=== PATIENT | male | born 1970 | race Two or more races ===

== ENCOUNTER 2018-06-17 18:54 | Observation (INO) | payer SELFPAY ==
[2018-06-17 19:22] LABS: ADD MAN DIFF? NO
[2018-06-17 19:27] LABS: BASO # 0.1 x10^3/uL (0.0-0.2); BASO % 1 % (0-3); EOS # 0.2 x10^3/uL (0.0-0.7); EOS % 3 % (0-3); HEMATOCRIT 43.3 % (39.0-53.0); LYMPH # 2.1 x10^3/uL (1.0-4.8); LYMPH % 28 % (24-48); MEAN CORPUSCULAR HEMOGLOBIN 30 pg (25-35); MEAN CORPUSCULAR HGB CONC 35 g/dL (31-37); MEAN CORPUSCULAR VOLUME 86 fL (79-100); MONO # 0.6 x10^3/uL (0.0-1.1); MONO % 8 % (0-9); NEUT # 4.6 x10^3uL (1.8-7.7); NEUT % 60 % (31-73); PLATELET COUNT 249 x10^3/uL (140-400); RED BLOOD COUNT 5.03 x10^6/uL (4.30-5.70); RED CELL DISTRIBUTION WIDTH 14.4 % (11.5-14.5); WHITE BLOOD COUNT 7.7 x10^3/uL (4.0-11.0)
[2018-06-17 19:52] LABS: ANION GAP 12 (6-14); BLOOD UREA NITROGEN 21 mg/dL (8-26); CALCIUM 8.4 mg/dL (8.5-10.1); CARBON DIOXIDE 25 mmol/L (21-32); CHLORIDE 98 mmol/L (98-107); GFR 79.8; GLUCOSE 142 mg/dL (70-99); SODIUM 135 mmol/L (136-145)
[2018-06-17 20:01] LABS: TROPONINI < 0.017 ng/mL (0.000-0.055)
[2018-06-17] MEDS ORDERED: ONDANSETRON PF 4 MG/2 ML VIAL. IV (21:15)
[2018-06-17] MEDS ORDERED: ACETAMINOPHEN 325 MG TABLET. PO (21:15)
[2018-06-17] MEDS ORDERED: MORPHINE SULFATE 4 MG/ML DISP.SYRIN. IV (21:15)
[2018-06-17] MEDS ORDERED: NITROGLYCERIN SUBLINGUAL 0.4 MG BOTTLE OF 25. SL (21:15)
[2018-06-18 01:58] LABS: TROPONINI < 0.017 ng/mL (0.000-0.055)
[2018-06-18 05:34] LABS: TROPONINI < 0.017 ng/mL (0.000-0.055)
[2018-06-18 05:58] LABS: ANION GAP 11 (6-14); BLOOD UREA NITROGEN 18 mg/dL (8-26); CALCIUM 8.6 mg/dL (8.5-10.1); CARBON DIOXIDE 27 mmol/L (21-32); CHLORIDE 98 mmol/L (98-107); GFR 79.8; GLUCOSE 141 mg/dL (70-99); POTASSIUM 3.8 mmol/L (3.5-5.1); SODIUM 136 mmol/L (136-145)
[2018-06-18] MEDS: INSULIN LISPRO 300 UNITS/3 ML INSULN.PEN. SQ (13:00)
[2018-06-18] MEDS ORDERED: DEXTROSE 50% 25 GM / 50ML DISP.SYRIN. IV (13:00)
[2018-06-18 13:36] LABS: LIPASE 325 U/L (73-393)
[2018-06-18 13:36] LABS: CHOLESTEROL 181 mg/dL (0-200); HDLC 26 mg/dL (40-60); LDLC 77 mg/dL (0-100); NON-HDL CHOLESTEROL 155 mg/dL (0-129); TRIGLYCERIDES 390 mg/dL (0-150); VLDLC 78 mg/dL (0-40)
[2018-06-18 14:05] LABS: THYROID STIM HORMONE (TSH) 7.326 uIU/mL (0.358-3.74)
[2018-06-18] MEDS: LISINOPRIL 20 MG TABLET PO (14:46)
[2018-06-18] MEDS: ASPIRIN ENTERIC COATED 81 MG TABLET.DR. PO (14:46)
[2018-06-18 16:45] LABS: POC GLUCOSE 100 mg/dL (70-99)
[2018-06-18] MEDS ORDERED: ATORVASTATIN CALCIUM 20 MG TABLET PO (21:00)
[2018-06-18 22:09] LABS: HEMOGLOBIN A1C 6.1 % (4.8-5.6)
== END 2018-06-18 17:05 | disposition home or self-care (01) ==
LOC: ER 18:54 → 2 SOUTH 21:00
DX: R07.89 Other chest pain (principal); I25.10 Atherosclerotic heart disease of native coronary artery without angina pectoris; E78.00 Pure hypercholesterolemia, unspecified; E78.5 Hyperlipidemia, unspecified; I10 Essential (primary) hypertension; Z82.49 Family history of ischemic heart disease and other diseases of the circulatory system; Z95.1 Presence of aortocoronary bypass graft; M19.90 Unspecified osteoarthritis, unspecified site; Z79.899 Other long term (current) drug therapy
CPT/HCPCS: 36415; 71045; 80048; 80061; 82962; 83036; 83690; 84443; 84484; 85025; 93005; 99285; G0378; G0379; J1815

== ENCOUNTER 2018-07-11 07:57 | Day surgery (SDC) | payer SELFPAY ==
[~2018-07-11 07:57] MED LIST changes: -CARV3.122 PO; +IV RINGERS,LACTATED 1000ML 1,000 ML IV SCH; +LIDOCAINE 1% PF 2 ML VIAL. ID PRN; +MORPHINE SULFATE 2 MG/ML DISP.SYRIN. IV PRN; +ONDANSETRON PF 4 MG/2 ML VIAL. IV PRN; +PROCHLORPERAZINE 10 MG/2 ML VIAL. IV PRN; +fentaNYL PF VIAL 100 MCG/2 ML VIAL IV PRN
[2018-07-11] MEDS ORDERED: BENZOCAINE ONE 20% MUCOSAL SPRAY. MM (08:00)
[2018-07-11] MEDS ORDERED: LIDOCAINE 2% VISCOUS 15 ML SOLUTION. SWSW ONE (08:00)
[2018-07-11] MEDS ORDERED: LIDOCAINE 2% TOPICAL JELLY 5GM TUBE. TP ONE ×2 (08:00→10:23)
[2018-07-11] MEDS ORDERED: CARV3.122 PO (08:50)
[2018-07-11] MEDS ORDERED: PROPOFOL 0 ML IV ONE (10:02)
[2018-07-11] MEDS ORDERED: BENZOCAINE ONE 20% MUCOSAL SPRAY. (10:23)
[2018-07-11] MEDS ORDERED: LIDOCAINE 2% VISCOUS 15 ML SOLUTION. ONE (10:24)
[2018-07-11] MEDS ORDERED: PROPOFOL 40 ML IV ONE (10:53)
[2018-07-11 12:55] VITALS: BP 160/97
--- NOTE | 2018-07-11 17:18 | CARD ---
MR#: [id number] Date of Study: 07/11/2018 Ordering Physician: CHARLI LENTZ Referring Physician: Trevor HORAN: Tanya Gunderson RDCS APPROVED REPORT EXAM: Transesophageal echocardiogram with color flow Doppler. INDICATION Aortic Valve Disease 2D DIMENSIONS LVOT Diameter2.2 (1.8-2.4cm) Aortic Valve AoV Peak Jagjit.244.4cm/sAoV VTI47.0cm AO Peak GR.23.9mmHgLVOT Peak Jagjit.103.6cm/s LVOT VTI 24.51cmAO Mean GR.13mmHg PHONG (VTI)1.50tq3LY P 1/2 [id number] Reason For Test : Evaluate aortic valve leaflets and regurgitation PROCEDURE After obtaining informed consent, patient underwent transesophageal echo in the PACU. Type of Sedation : General Anesthesia Sedation was administered by Dr. Jareth MD. Sedation was achieved with Propofol 400 mg intravenously. Transesophageal probe was inserted and advanced into esophagus by Charli Lentz MD. The TAQUERIA was performed without complications. Throughout the procedure, the blood pressure, pulse oximetry, cardiac rhythm, and rate were monitored . The patient tolerated the procedure without adverse effects. Recovery from general anesthesia was une ventful and vital signs were stable. LEFT VENTRICLE The left ventricular systolic function is normal. The Ejection Fraction is 55-60%. There is normal LV segmental wall motion. RIGHT VENTRICLE The right ventricle is normal size. There is normal right ventricular wall thickness. The right ventr icular systolic function is normal. ATRIA The left atrium is mildly dilated. The right atrium size is normal. The interatrial septum is intact with no evidence for an atrial septal defect or patent foramen ovale as noted on 2-D or Doppler imagi ng. AORTIC VALVE The aortic valve is tri-cuspid. Doppler and Color Flow revealed mild to moderate aortic regurgitation . There is no significant aortic valvular stenosis. MITRAL VALVE The mitral valve is normal in structure. There is no evidence of mitral valve prolapse. There is no m itral valve stenosis. Doppler and Color-flow revealed mild to moderate mitral regurgitation. TRICUSPID VALVE The tricuspid valve is normal in structure and function. Doppler and Color Flow revealed trace tricus pid regurgitation. There is no tricuspid valve stenosis. PULMONIC VALVE The pulmonary valve is normal in structure and function. Doppler and Color Flow revealed no pulmonic valvular regurgitation. There is no pulmonic valvular stenosis. GREAT VESSELS The aortic root is normal in size. PERICARDIAL EFFUSION There is no evidence of significant pericardial effusion. Critical Notification Critical Value: No <Conclusion> The left ventricular systolic function is normal. The Ejection Fraction is 55-60%. There is normal LV segmental wall motion. Mild to moderate aortic regurgitation. Mild to moderate mitral regurgitation. Trace tricuspid regurgitation. There is no evidence of significant pericardial effusion. Signed by : Charli Lentz, Electronically Approved : 07/11/2018 17:17:19
== END 2018-07-11 13:20 | disposition home or self-care (01) ==
LOC: SURG 07:57
PROVIDERS: ATTEND Internal Medicine Cardiovascular Disease
DX: I08.3 Combined rheumatic disorders of mitral, aortic and tricuspid valves (principal); I25.10 Atherosclerotic heart disease of native coronary artery without angina pectoris; I11.0 Hypertensive heart disease with heart failure; I50.30 Unspecified diastolic (congestive) heart failure; E78.00 Pure hypercholesterolemia, unspecified; E11.9 Type 2 diabetes mellitus without complications; Z79.82 Long term (current) use of aspirin; Z98.890 Other specified postprocedural states; Z89.022 Acquired absence of left finger(s); F17.200 Nicotine dependence, unspecified, uncomplicated; Z83.3 Family history of diabetes mellitus; Z82.49 Family history of ischemic heart disease and other diseases of the circulatory system; Z83.49 Family history of other endocrine, nutritional and metabolic diseases; Z79.84 Long term (current) use of oral hypoglycemic drugs; Z95.1 Presence of aortocoronary bypass graft; M19.90 Unspecified osteoarthritis, unspecified site; F10.20 Alcohol dependence, uncomplicated
CPT/HCPCS: 76376; 93312; 93320; 93325; J2704

== ENCOUNTER → 2018-07-11 | Outpatient (CLI) | payer SELFPAY ==
[2018-06-18 15:00] VITALS: BP 142/77
[~2018-07-11] MED LIST: ASPI-612 PO; ATOR20TA58 PO; CARV3.12 PO; CARV3.122 PO; HYDR12.53 PO; LISI-130 PO; NITR0.4T SL
[2018-07-11 08:40] LABS: BASO # 0.1 x10^3/uL (0.0-0.2); BASO % 1 % (0-3); EOS # 0.3 x10^3/uL (0.0-0.7); EOS % 4 % (0-3); HEMATOCRIT 38.9 % (39.0-53.0); HEMOGLOBIN 13.6 g/dL (13.0-17.5); LYMPH % 34 % (24-48); MEAN CORPUSCULAR HEMOGLOBIN 30 pg (25-35); MEAN CORPUSCULAR HGB CONC 35 g/dL (31-37); MEAN CORPUSCULAR VOLUME 86 fL (79-100); MONO # 0.4 x10^3/uL (0.0-1.1); MONO % 7 % (0-9); NEUT # 3.1 x10^3uL (1.8-7.7); NEUT % 53 % (31-73); PLATELET COUNT 195 x10^3/uL (140-400); RED BLOOD COUNT 4.55 x10^6/uL (4.30-5.70); RED CELL DISTRIBUTION WIDTH 14.3 % (11.5-14.5); WHITE BLOOD COUNT 5.8 x10^3/uL (4.0-11.0)
[2018-07-11 09:00] LABS: PROTHROMBIN TIME PATIENT 13.7 SEC (11.7-14.0)
[2018-07-11 09:28] LABS: ALBUMIN 3.9 g/dL (3.4-5.0); CALCIUM 8.8 mg/dL (8.5-10.1); CREATININE 0.9 mg/dL (0.7-1.3); GFR 90.1; POTASSIUM 3.5 mmol/L (3.5-5.1); TOTAL BILIRUBIN 0.5 mg/dL (0.2-1.0)
== END | disposition home or self-care (01) ==
LOC: SURGPAT 07:59
PROVIDERS: ATTEND Thoracic Surgery (Cardiothoracic Vascular Surgery)
DX: Z01.810 Encounter for preprocedural cardiovascular examination (principal); I25.10 Atherosclerotic heart disease of native coronary artery without angina pectoris; I10 Essential (primary) hypertension; E11.9 Type 2 diabetes mellitus without complications; E78.5 Hyperlipidemia, unspecified; E78.00 Pure hypercholesterolemia, unspecified; Z79.82 Long term (current) use of aspirin; F17.200 Nicotine dependence, unspecified, uncomplicated; Z95.1 Presence of aortocoronary bypass graft; Z89.022 Acquired absence of left finger(s); Z83.49 Family history of other endocrine, nutritional and metabolic diseases; Z83.3 Family history of diabetes mellitus; Z82.49 Family history of ischemic heart disease and other diseases of the circulatory system
CPT/HCPCS: 36415; 80053; 85025; 85610; 85730; 87641

== ENCOUNTER → 2018-07-12 | Outpatient (CLI) | payer SELFPAY ==
[2018-06-18 15:00] VITALS: BP 142/77
[~2018-07-12] MED LIST changes: +CARV3.122 PO; -IV RINGERS,LACTATED 1000ML 1,000 ML IV SCH; -LIDOCAINE 1% PF 2 ML VIAL. ID PRN; -MORPHINE SULFATE 2 MG/ML DISP.SYRIN. IV PRN; -ONDANSETRON PF 4 MG/2 ML VIAL. IV PRN; -PROCHLORPERAZINE 10 MG/2 ML VIAL. IV PRN; -fentaNYL PF VIAL 100 MCG/2 ML VIAL IV PRN
--- NOTE | 2018-07-12 16:13 | RAD ---
CT of the chest without contrast 07/12/2018 INDICATION: Preoperative. COMPARISON STUDY: Chest radiograph June 17, 2018. TECHNIQUE: Multidetector CT imaging of the chest was performed without the administration of IV contrast. FINDINGS: Heart is top normal in size. No pericardial effusion is identified. Scattered coronary calcification noted. No significant calcification involving the aortic valve is identified. The ascending thoracic aorta is minimally ectatic measuring 3.7 cm at the level of the main pulmonary artery. No pathologically enlarged mediastinal adenopathy is identified. No pneumothorax or pleural effusion is seen. No focal consolidative infiltrates are identified. No acute abnormalities of the upper abdomen are seen. No acute osseous changes are identified.Surgical clips noted in the epigastrium. IMPRESSION: No evidence of acute cardiopulmonary process is identified. Scattered coronary artery calcification noted. CT DOSING PQRS STATEMENT: One or more of the following individualized dose reduction techniques were utilized for this examination: 1. Automated exposure control 2. Adjustment of the mA and/or kV according to patient size 3. Use of iterative reconstruction technique Electronically signed by: Erik Gupta MD (07/12/2018 4:09 PM) [id number]
--- NOTE | 2018-07-13 08:43 | RAD ---
Bilateral Duplex Carotid Ultrasound: History: Preoperative. Technique: Grayscale, color Doppler, and spectral Doppler imaging was performed of the arteries of the neck. Findings: Peak systolic velocity in right common carotid artery is 86 cm/sec. Peak systolic velocity in the right internal carotid artery is 56 cm/sec. Maximum end-diastolic velocity in the right internal carotid artery is 26 cm/sec. Right ICA/CCA ratio is 0.65. Peak systolic velocity in the right external carotid artery is 130 cm/sec. Peak systolic velocity in left common carotid artery is 84 cm/sec. Peak systolic velocity in the left internal carotid artery is 77 cm/sec. Maximum end-diastolic velocity in the left internal carotid artery is 36 cm/sec. Left ICA/CCA ratio is 0.91. Peak systolic velocity in the left external carotid artery is 119 cm/sec. Both vertebral arteries demonstrate antegrade flow. Grayscale imaging demonstrates mild atherosclerotic plaquing involving both carotid systems. Impression: No hemodynamically significant internal carotid artery stenosis. Note: Stenosis calculations for carotid ultrasound studies are derived from validated velocity criteria which are known to correlate with the NASCET methodology. Electronically signed by: Mina Murray MD (07/13/2018 8:39 AM) [place] [id number]
--- NOTE | 2018-07-13 12:08 | RAD ---
MR#: [id number] Date of Study: 07/12/2018 Ordering Physician: BARAK PETERSEN, Referring Physician: BARAK PETERSEN, Tech: Alex Teixeira MBA, RDMS, RVT, RDCS, RTR APPROVED REPORT Patient Location: OUT-PATIENT Indications PRE-OP Vein Measurements Great Saphenous Small Saphenous RightLeft RightLeft Saph-Fem. Junction 3.00mm3.60mmProximal 1.30mm1.30mm Mid Thigh 3.00mm3.00mmMid 1.80mm1.40mm Distal Thigh 3.00mm3.30mmDistal 1.00mm1.30mm Proximal Calf 2.80mm2.60mm Mid Calf 0.90mm1.60mm Distal Calf 0.50mm2.30mm Findings Grayscale images of the bilateral greater saphenous veins do not reveal any obvious evidence of throm bus. The bilateral greater saphenous veins appear to be of adequate caliber measuring approximately 3 mm proximally and 3 mm at the level of the knee. The bilateral lesser saphenous veins appear to be s mall in caliber and not adequate for bypass grafting. Critical Notification Critical Value: No <Conclusion> Adequate bypass grafts in the bilateral greater saphenous veins. Bilateral lesser saphenous veins are too small in caliber to be adequate bypass grafts. Signed by : Amari Palomares, Electronically Approved : 07/13/2018 12:07:17
== END | disposition home or self-care (01) ==
LOC: SURGPAT 14:14
PROVIDERS: ATTEND Thoracic Surgery (Cardiothoracic Vascular Surgery)
DX: Z01.818 Encounter for other preprocedural examination (principal); I25.10 Atherosclerotic heart disease of native coronary artery without angina pectoris; I11.0 Hypertensive heart disease with heart failure; I50.30 Unspecified diastolic (congestive) heart failure; E11.9 Type 2 diabetes mellitus without complications; E78.00 Pure hypercholesterolemia, unspecified; Z87.891 Personal history of nicotine dependence; Z95.1 Presence of aortocoronary bypass graft
CPT/HCPCS: 71250; 93880; 93970

== ENCOUNTER → 2018-08-19 | Outpatient (CLI) | payer SELFPAY ==
[2018-07-25 10:33] VITALS: BP 129/81
[~2018-08-19] MED LIST changes: +ASPI325T11 PO; +FURO20TA3 PO; +IRON150C11 PO; +METF500T PO; +METO25TA4 PO; +OXYC1TAB7 PO; +SENN-22 PO
--- NOTE | 2018-08-19 13:06 | RAD ---
Chest, 2 views, 08/19/2018: HISTORY: Postop CABG Comparison is made to a study from 07/22/2018. There has been a previous median sternotomy. The heart size and pulmonary vascularity are normal. Left basilar atelectasis has cleared. No pulmonary infiltrate is seen. The previously seen tiny left pneumothorax has resolved. No significant pleural fluid is evident. IMPRESSION: No significant postoperative cardiopulmonary abnormality is detected. Electronically signed by: Hosea Giron MD (08/19/2018 1:02 PM) [facility]
== END | disposition home or self-care (01) ==
LOC: RAD 12:17
PROVIDERS: ATTEND Thoracic Surgery (Cardiothoracic Vascular Surgery)
DX: Z48.812 Encounter for surgical aftercare following surgery on the circulatory system (principal); K21.9 Gastro-esophageal reflux disease without esophagitis; I11.0 Hypertensive heart disease with heart failure; I50.30 Unspecified diastolic (congestive) heart failure; E78.00 Pure hypercholesterolemia, unspecified; E11.9 Type 2 diabetes mellitus without complications; E03.9 Hypothyroidism, unspecified; I25.10 Atherosclerotic heart disease of native coronary artery without angina pectoris; E78.5 Hyperlipidemia, unspecified; Z86.2 Personal history of diseases of the blood and blood-forming organs and certain disorders involving the immune mechanism; Z95.1 Presence of aortocoronary bypass graft; Z87.891 Personal history of nicotine dependence; Z82.41 Family history of sudden cardiac death; Z83.49 Family history of other endocrine, nutritional and metabolic diseases; Z82.49 Family history of ischemic heart disease and other diseases of the circulatory system; Z83.3 Family history of diabetes mellitus
CPT/HCPCS: 71046

== ENCOUNTER 2021-05-20 11:02 | Emergency (ER) | payer SELFPAY ==
[~2021-05-20] VITALS: Ht 177.8 cm; Wt 90.9 kg
[~2021-05-20 11:02] MED LIST changes: -ASPI-612 PO; +ASPI-886 PO; +CARV3.1210 PO; -CARV3.122 PO; -HYDR12.53 PO; +HYDR12.575 PO; -NITR0.4T SL; +NITR0.4T24 SL
[2021-05-20 11:35] LABS: BASO % 1 % (0-3); EOS % 1 % (0-3); HEMATOCRIT 35.7 % (39.0-53.0); HEMOGLOBIN 11.4 g/dL (13.0-17.5); LYMPH % 16 % (24-48); MEAN CORPUSCULAR HEMOGLOBIN 23 pg (25-35); MEAN CORPUSCULAR HGB CONC 32 g/dL (31-37); MEAN CORPUSCULAR VOLUME 72 fL (79-100); MONO # 0.3 x10^3/uL (0.0-1.1); MONO % 5 % (0-9); NEUT # 4.8 x10^3/uL (1.8-7.7); NEUT % 79 % (31-73); PLATELET COUNT 175 x10^3/uL (140-400); RED BLOOD COUNT 4.97 x10^6/uL (4.30-5.70); WHITE BLOOD COUNT 6.1 x10^3/uL (4.0-11.0)
[2021-05-20 11:47] LABS: CALCIUM 8.7 mg/dL (8.5-10.1); CREATININE 0.9 mg/dL (0.7-1.3); POTASSIUM 4.2 mmol/L (3.5-5.1)
[2021-05-20 11:53] LABS: ALBUMIN/GLOBULIN RATIO 0.9 (1.0-1.7); TOTAL BILIRUBIN 0.5 mg/dL (0.2-1.0); TOTAL PROTEIN 8.5 g/dL (6.4-8.2)
[2021-05-20] MEDS ORDERED: ACETAMINOPHEN 500 MG TABLET PO ONE (12:00)
[2021-05-20] MEDS ORDERED: IV NORMAL SALINE 1000ML BAG 1,000 ML IV ONE (12:00)
--- NOTE | 2021-05-20 12:17 | PHYS DOC ---
Past Medical History Past Medical History: High Cholesterol, Hypertension Past Surgical History: Coronary Bypass Surgery, Other Additional Past Surgical Histo: HERNIA X 3, L. 3RD FINGER AMPUTATION Smoking Status: Light Tobacco Smoker Alcohol Use: Occasionally Drug Use: None General Adult EDM: Chief Complaint: CHEST PAIN-CARDIAC NATURE HPI: HPI: Patient is a 51 year old male who presented to ER due to cough and trouble breathing since last , then he started having chest pain with cough since yesterday. Patient said the pain in her chest is sharp in nature, with taking a deep breath or cough. Patient denies any nausea vomiting. Patient is not vaccinated for COVID-19. Patient do have history of coronary artery disease, had bypass surgery in the past. Review of Systems: Review of Systems: Constitutional: Denies fever or chills. [] Eyes: Denies change in visual acuity. [] HENT: Denies nasal congestion or sore throat. [] Respiratory: Positive for cough and shortness of breath. [] Cardiovascular: Positive for chest pain, no edema] GI: Denies abdominal pain, nausea, vomiting, bloody stools or diarrhea. [] : Denies dysuria. [] Musculoskeletal: Denies back pain or joint pain. [] Integument: Denies rash. [] Neurologic: Denies headache, focal weakness or sensory changes. [] Endocrine: Denies polyuria or polydipsia. [] Lymphatic: Denies swollen glands. [] Psychiatric: Denies depression or anxiety. [] Heart Score: C/O Chest Pain: Yes HEART Score for Chest Pain: HEART Score for Chest Pain Response (Comments) Value History Slighlty/Non-Suspicious 0 ECG Nonspecific Repolarizatio 1 Age >45 - < 65 1 Risk Factors >3 Risk Factors or Hx CAD 2 Troponin < Normal Limit 0 Total 4 Risk Factors: Risk Factors: DM, Current or recent (<one month) smoker, HTN, HLP, family history of CAD, obesity. Risk Scores: Score 0 - 3: 2.5% MACE over next 6 weeks - Discharge Home Score 4 - 6: 20.3% MACE over next 6 weeks - Admit for Clinical Observation Score 7 - 10: 72.7% MACE over next 6 weeks - Early Invasive Strategies Current Medications: Current Medications Medications (Trade) Dose Ordered Sig/Aiden Start Time Stop Time Status Last Admin Dose Admin Acetaminophen (Tylenol) 1,000 mg 1X ONCE 05/20/21 12:00 05/20/21 12:02 DC Sodium Chloride 1,000 ml @ 1,000 mls/hr 1X ONCE 05/20/21 12:00 05/20/21 12:59 Allergies: Allergies: Allergies Coded Allergies Type Severity Reaction Last Updated Verified No Known Drug Allergies 07/19/18 No Physical Exam: PE: Constitutional: Well developed, well nourished, no acute distress, non-toxic appearance. [] HENT: Normocephalic, atraumatic, bilateral external ears normal, oropharynx moist, no oral exudates, nose normal. [] Eyes: PERRLA, EOMI, conjunctiva normal, no discharge. [] Neck: Normal range of motion, no tenderness, supple, no stridor. [] Cardiovascular:Heart rate regular rhythm, no murmur [] Lungs & Thorax: Bilateral breath sounds with crackles at lung bases to auscultation [] Abdomen: Bowel sounds normal, soft, no tenderness, no masses, no pulsatile masses. [] Skin: Warm, dry, no erythema, no rash. [] Back: No tenderness, no CVA tenderness. [] Extremities: No tenderness, no cyanosis, no clubbing, ROM intact, no edema. [] Neurologic: Alert and oriented X 3, normal motor function, normal sensory function, no focal deficits noted. [] Psychologic: Affect normal, judgement normal, mood normal. [] Current Patient Data: Labs: Laboratory Tests Test 05/20/21 11:20 White Blood Count 6.1 x10^3/uL Red Blood Count 4.97 x10^6/uL Hemoglobin 11.4 g/dL Hematocrit 35.7 % Mean Corpuscular Volume 72 fL Mean Corpuscular Hemoglobin 23 pg Mean Corpuscular Hemoglobin Concent 32 g/dL Red Cell Distribution Width 18.0 % Platelet Count 175 x10^3/uL Neutrophils (%) (Auto) 79 % Lymphocytes (%) (Auto) 16 % Monocytes (%) (Auto) 5 % Eosinophils (%) (Auto) 1 % Basophils (%) (Auto) 1 % Neutrophils # (Auto) 4.8 x10^3/uL Lymphocytes # (Auto) 1.0 x10^3/uL Monocytes # (Auto) 0.3 x10^3/uL Eosinophils # (Auto) 0.0 x10^3/uL Basophils # (Auto) 0.0 x10^3/uL Platelet Estimate Adequate Polychromasia Slight Hypochromasia Slight Anisocytosis Slight Microcytosis Slight Tear Drop Cells Occ Sodium Level 137 mmol/L Potassium Level 4.2 mmol/L Chloride Level 102 mmol/L Carbon Dioxide Level 25 mmol/L Anion Gap 10 Blood Urea Nitrogen 12 mg/dL Creatinine 0.9 mg/dL Estimated GFR (Cockcroft-Gault) 89.0 BUN/Creatinine Ratio 13 Glucose Level 141 mg/dL Lactic Acid Level 1.1 mmol/L Calcium Level 8.7 mg/dL Magnesium Level 2.0 mg/dL Total Bilirubin 0.5 mg/dL Aspartate Amino Transf (AST/SGOT) 29 U/L Alanine Aminotransferase (ALT/SGPT) 21 U/L Alkaline Phosphatase 64 U/L Troponin I Quantitative < 0.017 ng/mL FL-Lxr-U-Type Natriuretic Peptide 329 pg/mL Total Protein 8.5 g/dL Albumin 4.0 g/dL Albumin/Globulin Ratio 0.9 Lipase 44 U/L SARS-CoV-2 Antigen (Rapid) Positive Current Medications Medications (Trade) Dose Ordered Sig/Aiden Route PRN Reason Start Time Stop Time Status Last Admin Dose Admin Sodium Chloride 1,000 ml @ 1,000 mls/hr 1X ONCE IV 05/20/21 12:00 05/20/21 12:59 DC 05/20/21 12:28 Acetaminophen (Tylenol) 1,000 mg 1X ONCE PO 05/20/21 12:00 05/20/21 12:02 DC 05/20/21 12:29 Iohexol (Omnipaque 350 Mg/ml) 100 ml 1X ONCE IV 05/20/21 12:30 05/20/21 12:31 DC 05/20/21 12:38 Methylprednisolone Sodium Succinate (SOLU-Medrol 125MG VIAL) 125 mg 1X ONCE IV 05/20/21 14:30 05/20/21 14:47 DC 05/20/21 15:15 Casirivimab 1200 mg/Imdevimab 1200 mg/Sodium Chloride 270 ml @ 200 mls/hr 1X ONCE IV 05/20/21 15:00 05/20/21 16:20 DC 05/20/21 15:16 Ceftriaxone Sodium (Rocephin) 1 gm 1X ONCE IVP 05/20/21 14:45 05/20/21 14:47 DC 05/20/21 15:16 Laboratory Tests Test 05/20/21 11:20 White Blood Count 6.1 x10^3/uL (4.0-11.0) Red Blood Count 4.97 x10^6/uL (4.30-5.70) Hemoglobin 11.4 g/dL (13.0-17.5) L Hematocrit 35.7 % (39.0-53.0) L Mean Corpuscular Volume 72 fL (79-100) L Mean Corpuscular Hemoglobin 23 pg (25-35) L Mean Corpuscular Hemoglobin Concent 32 g/dL (31-37) Red Cell Distribution Width 18.0 % (11.5-14.5) H Platelet Count 175 x10^3/uL (140-400) Neutrophils (%) (Auto) 79 % (31-73) H Lymphocytes (%) (Auto) 16 % (24-48) L Monocytes (%) (Auto) 5 % (0-9) Eosinophils (%) (Auto) 1 % (0-3) Basophils (%) (Auto) 1 % (0-3) Neutrophils # (Auto) 4.8 x10^3/uL (1.8-7.7) Lymphocytes # (Auto) 1.0 x10^3/uL (1.0-4.8) Monocytes # (Auto) 0.3 x10^3/uL (0.0-1.1) Eosinophils # (Auto) 0.0 x10^3/uL (0.0-0.7) Basophils # (Auto) 0.0 x10^3/uL (0.0-0.2) Platelet Estimate Pending Sodium Level 137 mmol/L (136-145) Potassium Level 4.2 mmol/L (3.5-5.1) Chloride Level 102 mmol/L (98-107) Carbon Dioxide Level 25 mmol/L (21-32) Anion Gap 10 (6-14) Blood Urea Nitrogen 12 mg/dL (8-26) Creatinine 0.9 mg/dL (0.7-1.3) Estimated GFR (Cockcroft-Gault) 89.0 BUN/Creatinine Ratio 13 (6-20) Glucose Level 141 mg/dL (70-99) H Calcium Level 8.7 mg/dL (8.5-10.1) Magnesium Level 2.0 mg/dL (1.8-2.4) Total Bilirubin 0.5 mg/dL (0.2-1.0) Aspartate Amino Transferase (AST) 29 U/L (15-37) Alanine Aminotransferase (ALT) 21 U/L (16-63) Alkaline Phosphatase 64 U/L (46-116) Troponin I Quantitative < 0.017 ng/mL (0.000-0.055) SE-Kzc-Z-Type Natriuretic Peptide 329 pg/mL (0-124) H Total Protein 8.5 g/dL (6.4-8.2) H Albumin 4.0 g/dL (3.4-5.0) Albumin/Globulin Ratio 0.9 (1.0-1.7) L Lipase 44 U/L (73-393) L Laboratory Tests 05/20/21 11:20 Laboratory Tests 05/20/21 11:20 Vital Signs: Vital Signs Date Time Temp Pulse Resp B/P (MAP) Pulse Ox O2 Delivery O2 Flow Rate FiO2 05/20/21 11:08 100.3 65 24 156/92 (113 97 Room Air 100.3 EKG: EKG: EKG was done at 1106, heart rate of 63 bpm, sinus rhythm, right bundle branch block, no ST segment elevation. [] Radiology/Procedures: Radiology/Procedures: [facility] [address] [place] [address] IMAGING REPORT Signed PATIENT: GILA FISCHER AACCOUNT: [id number] : 1970 LOCATION: ER AGE: 51 SEX: M EXAM STATUS: REG ER ORD. PHYSICIAN: JAYSHREE CHENG DO REASON: chest pain, cough PROCEDURE: PORTABLE CHEST 1V INDICATION: Reason: chest pain, cough / Spl. Instructions: / History: COMPARISON: July 2018 FINDINGS: Single view of chest obtained. Enlarged cardiomediastinal silhouette with poststernotomy changes. Left lung base is limited secondary to overlying cardiac silhouette obscuring. No definite consolidation elsewhere in the lungs. IMPRESSION: * Enlarged cardiac silhouette with poststernotomy changes and no definite new region of consolidation. Electronically signed by: Eva Carter MD (05/20/2021 11:34 AM) [id number] DICTATED and SIGNED BY: EVA CARTER MD DATE: 05/20/21 [id number] [][facility] [address] [place] [address] IMAGING REPORT Signed PATIENT: GILA FISCHER AACCOUNT: [id number] : 1970 LOCATION: ER AGE: 51 SEX: M EXAM STATUS: REG ER ORD. PHYSICIAN: JAYSHREE CHENG DO REASON: chest pain, soa PROCEDURE: CT ANGIOGRAPHY CHEST Examination: CT angiography chest with IV contrast HISTORY: History of chest pain, shortness of breath COMPARISON: CT chest without contrast from 07/12/2018 TECHNIQUE: Axial CT angiographic images of chest were performed with IV contrast coronal and sagittal 3-D MIP reformats are performed Exposure: One or more of the following individualized dose reduction techniques were utilized for this examination: 1. Automated exposure control 2. Adjustment of the mA and/or kV according to patient size 3. Use of iterative reconstruction technique FINDINGS: The visualized thyroid gland grossly appears unremarkable. Coronary artery calcifications. Central airways are patent. The ascending aorta measures 3.6 cm in transverse dimension. No evidence of filling defect identified in the main pulmonary arterial trunk and right and left main pulmonary arteries. The evaluation of the distal branches of the pulmonary arteries is limited. There are multiple foci of groundglass airspace opacities bilateral lungs throughout. The visualized liver, spleen, adrenals grossly appears unremarkable Mild degenerative changes thoracic spine. IMPRESSION: 1. No evidence of central pulmonary embolism. 2. Multiple foci of groundglass airspace opacities bilateral lungs throughout likely infiltrates/atypical or viral/covid pneumonia. Correlate clinically. Electronically signed by: Vu Mathur MD (05/20/2021 1:42 PM) [id number] DICTATED and SIGNED BY: VU MATHUR MD DATE: 05/20/21 [id number] Course & Med Decision Making: Course & Med Decision Making Pertinent Labs and Imaging studies reviewed. (See chart for details) Patient is a 51-year-old male who presented to ER due to cough fever chills, chest pain with cough since last . Patient was tested positive for COVID-19, CT scan of the chest showed no PE, there is groundglass infiltration consistent with COVID-19 pneumonia. Patient vital signs were stable, his oxygen saturation was 100% on room air. Patient meets criteria for outpatient COVID-19 treatment to prevent worsening disease based on age greater than 50 and coronary artery disease. 1) Patient has been given the fact sheet for patients and caregivers for COVID 19 and treatment 2) informed of alternatives to receiving what is REGEN-CoV - Casirivimab + Imdevimab 3) Patient informed that Regen-CoV is an approved drug and is authorized by the FDA under emergency use authorization. Patient agreed with IV ANTIVIRAL MEDICATION. Dragon Disclaimer: Dragon Disclaimer: This electronic medical record was generated, in whole or in part, using a voice recognition dictation system. Departure Departure Impression: Primary Impression: Pneumonia due to 2019-nCoV Disposition: HOME / SELF CARE / HOMELESS Condition: STABLE Referrals: UNKNOWN PCP NAME (PCP) Please follow up with [facility] this week. [address], [address] [place] [address] Phone number: [phone] Patient Instructions: Viral Syndrome Additional Instructions: You have been tested for or diagnosed with COVID-19. It is an infection caused by a new type of coronavirus. COVID-19 will cause cold-like or mild flu symptoms in most. It can cause more severe symptoms like problems breathing in some. There is no treatment for COVID-19. The body will clear the infection over time. Self-care will help to ease discomfort. Steps to Take: Self-Care Rest as needed. Healthy habits may help you feel better. Steps include: Choose healthy foods including fruits and vegetables. Drink water throughout the day. Get plenty of sleep each night. If you smoke, try to quit. It may ease breathing. Avoid alcohol. Keep Others Healthy The virus can spread to others. Droplets are released every time you sneeze or cough. The droplets can get into the mouth, nose, or eyes of people near you and lead to infection. To lower the chances of spreading COVID-19 to others: Stay at home until your doctor has said it is safe to leave. If you tested positive this will mean staying isolated until both of the following are true: At least 7 days have passed since the start of illness. You are free of fever for at least 72 hours without the use of medicine. During this time: - Avoid public areas, events, or transportation. Do not return to work or school until your doctor has said it is safe to do so. - Call ahead if you need to go to a medical center. Let them know you may have COVID-19. It will help them guide you where to go. They may also ask you to wear a facemask when you come to the office. - If you call for emergency medical services, let them know you may have COVID- 19. While at home: - Try to avoid close contact with others. Stay about 6 feet away. - If possible, spend most of your time in a separate room from others. - Use a face mask if you will be in close contact with others such as sharing a room or vehicle. - Have someone wipe down common surfaces in the home. Use household dramatic arts historian every day on areas like doorknobs, counters, or sinks. - Cough or sneeze into a tissue. Throw the tissue away right after use. If a tissue is not available, cough or sneeze into your elbow. - Wash your hands often. Wash them after sneezing or coughing. Use soap and water and wash for at least 20 seconds. Alcohol based hand ribbon cleaner can be used if soap and water is not available. - Do not prepare food for others. Avoid sharing personal items like forks, spoons, or toothbrushes. - Avoid close contact with pets while you are sick. There is no evidence of the virus passing to pets. This is a safety step until more is known about this virus. Isolation can be frustrating. Social interaction can help. Keep in touch with friends and family through phone and tech options. You can still interact with others in your home, just keep a safe distance of about 6 feet. Follow-up: Your doctors office will check in with you to see if there are any changes in your health. You may be asked to keep track of symptoms to share with them. They will also let you know when you are clear to be in public again. Problems to Look Out For: Contact your doctor if your recovery is not going as you expect. Get emergency care if you have problems such as: - Trouble breathing - Nonstop chest pain or pressure - Changes in awareness, confusion, or problems waking - Lips or face have bluish color - Worsening of symptoms If you think you have an emergency, call for emergency medical services right away. As taken from [facility] JAYSHREE CHENG DO May 20, 2021 12:17
[2021-05-20] MEDS ORDERED: IOHEXOL 350 MG/ML 100 ML VIAL. IV ONE (12:30)
[2021-05-20 12:42] LABS: ANISOCYTOSIS SLIGHT; HYPOCHROMIA SLIGHT; MICROCYTOSIS SLIGHT; PLT ESTIMATE ADEQUATE (ADEQUATE); POLYCHROMASIA SLIGHT
[2021-05-20 12:43] LABS: TEAR DROP CELLS OCC
--- NOTE | 2021-05-20 13:43 | RAD ---
INDICATION: Reason: chest pain, cough / Spl. Instructions: / History: COMPARISON: July 2018 FINDINGS: Single view of chest obtained. Enlarged cardiomediastinal silhouette with poststernotomy changes. Left lung base is limited secondary to overlying cardiac silhouette obscuring. No definite consolidation elsewhere in the lungs. IMPRESSION: * Enlarged cardiac silhouette with poststernotomy changes and no definite new region of consolidatio n. Electronically signed by: Franklyn Christy MD (05/20/2021 11:34 AM) [id number]
--- NOTE | 2021-05-20 13:44 | RAD ---
Examination: CT angiography chest with IV contrast HISTORY: History of chest pain, shortness of breath COMPARISON: CT chest without contrast from 07/12/2018 TECHNIQUE: Axial CT angiographic images of chest were performed with IV contrast coronal and sagittal 3-D MIP reformats are performed Exposure: One or more of the following individualized dose reduction techniques were utilized for thi s examination: 1. Automated exposure control 2. Adjustment of the mA and/or kV according to patient size 3. Use of iterative reconstruction technique FINDINGS: The visualized thyroid gland grossly appears unremarkable. Coronary artery calcifications. Central a irways are patent. The ascending aorta measures 3.6 cm in transverse dimension. No evidence of fillin g defect identified in the main pulmonary arterial trunk and right and left main pulmonary arteries. The evaluation of the distal branches of the pulmonary arteries is limited. There are multiple foci o f groundglass airspace opacities bilateral lungs throughout. The visualized liver, spleen, adrenals g rossly appears unremarkable Mild degenerative changes thoracic spine. IMPRESSION: 1. No evidence of central pulmonary embolism. 2. Multiple foci of groundglass airspace opacities bilateral lungs throughout likely infiltrates/atyp ical or viral/covid pneumonia. Correlate clinically. Electronically signed by: Vu Mathur MD (05/20/2021 1:42 PM) [id number]
[2021-05-20] MEDS ORDERED: methylPREDNISolone SOD SUCC PF 125 MG/2 ML VIAL. IV ONE (14:30)
[2021-05-20] MEDS ORDERED: cefTRIAXone IV Push 1 GM VIAL. IVP ONE (14:45)
[2021-05-20] MEDS ORDERED: [UNRECOGNIZED DRUG - OTHER] IV ONE (15:00)
[2021-05-20 17:45] VITALS: BP 169/87
--- NOTE | 2021-05-20 22:40 | EKG ---
[facility] [address] [place] [address] Test Date: 2021-05-20 Test Time: 11:32:00 Pat Name: GILA FISCHER Department: Room: Gender: M Infrastructure Administrator: : 1970 Requested By: JAYSHREE CHENG Order Number: [id number] Reading MD: Measurements Intervals [place] Rate: 65 P: 42 [place]: 154 QRS: 69 QRSD: 138 T: 23 QT: 426 QTc: 444 Interpretive Statements SINUS RHYTHM RIGHT BUNDLE BRANCH BLOCK QRS(T) CONTOUR ABNORMALITY CONSIDER INFERIOR MYOCARDIAL DAMAGE ABNORMAL ECG RI6.02 Compared to ECG 05/20/2021 11:06:10 No significant changes
--- NOTE | 2021-05-20 22:40 | EKG ---
[facility] [address] [place] [address] Test Date: 2021-05-20 Test Time: 11:06:10 Pat Name: GILA FISCHER Department: Room: Gender: M Director Of Physical Education: : 1970 Requested By: JAYSHREE CHENG Order Number: [id number] Reading MD: Measurements Intervals [place] Rate: 63 P: 38 [place]: 154 QRS: 70 QRSD: 138 T: 23 QT: 434 QTc: 447 Interpretive Statements SINUS RHYTHM RIGHT BUNDLE BRANCH BLOCK QRS(T) CONTOUR ABNORMALITY CONSIDER INFERIOR MYOCARDIAL DAMAGE ABNORMAL ECG RI6.02 No previous ECG available for comparison
== END 2021-05-20 18:20 | disposition home or self-care (01) ==
LOC: ER 11:02
DX: U07.1 COVID-19 (principal); J12.82 Pneumonia due to coronavirus disease 2019; E78.00 Pure hypercholesterolemia, unspecified; I10 Essential (primary) hypertension; I25.10 Atherosclerotic heart disease of native coronary artery without angina pectoris; Z95.1 Presence of aortocoronary bypass graft; Z72.0 Tobacco use
CPT/HCPCS: 36415; 71045; 71275; 80053; 83605; 83690; 83735; 83880; 84484; 85025; 87040; 87426; 93005; 96361; 96365; 96366; 96375; 99285; J0696; J2930; J7030; J7050; Q0243; Q9967; U0003